=== PATIENT | female | born 1960 | race Caucasian/White ===

== ENCOUNTER → 2018-08-06 | Outpatient (REF) | payer MEDICARE ==
[~2018-08-06] MED LIST: AMLODIPINE BESYL5 MG PO; AMLODIPINE2.5 MG PO; AMLODIPINE5 MG PO; AMOX/K CLAV875 M1 PO; AMOXICILLIN500 MG PO; ANTIVERT PO; AUGMENTIN875TAB PO; BACTRIM DS1 TAB PO; BENZONATATE200 MG PO; FLONASE NASAL50 MCG; HYDROCHLORO25 MG/TAB PO; HYDROCHLOROT12.5 MG PO; LISINOPRIL10 MG PO; LISINOPRIL5 MG PO; LOPRESS HCT1 TAB PO; LOPRESSOR50 MG PO; METOPRL/HCTZ1 TA1 PO; METROGEL VAG0.75 % VA; MUCINEX600 MG PO; NAPROSYN500 MG PO; PAROXETINE OR; PAROXETINE25 MG PO; PAXIL CR25 MG OR; PAXIL30 MG PO; PRAVASTATIN SOD10 MG PO; ROBITUSSIN AC10 ML PO; ULTRAM50 MG OR; ZOFRAN ODT4 MG PO; ZPAK PO
== END | disposition home or self-care (01) ==
LOC: NUCMED 12:30 → STRESS 12:44
PROVIDERS: ATTEND Internal Medicine
DX: R07.89 Other chest pain (principal); I20.9 Angina pectoris, unspecified; I70.209 Unspecified atherosclerosis of native arteries of extremities, unspecified extremity
CPT/HCPCS: A9502

== ENCOUNTER 2021-01-22 19:04 | Emergency (ER) | payer MEDICARE ==
[~2021-01-22] VITALS: Ht 162.6 cm; Wt 77.0 kg
[2021-01-22] MEDS ORDERED: LEVOTHYROXIN25 MC1 PO (20:59)
[2021-01-22] MEDS ORDERED: COZAAR25 MG PO (21:00)
[2021-01-22] MEDS ORDERED: ESCITALOPRAM OX10 MG PO (21:00)
[2021-01-22] MEDS ORDERED: K-TABS10 MEQ PO (21:01)
[2021-01-22 21:04] LABS: IMMATURE GRANULOCYTES 0.3 % (0.0-5.0); MEAN CELL VOLUME 87.6 fL CALC (80.0-100.0); MEAN CORPUSCULAR HGB 29.2 pG CALC (26.0-32.0); MEAN CORPUSCULAR HGB CONC 33.3 g/dL CAL (32.0-36.0); NEUT# 1.61 thou/uL (2.00-7.15); RED BLOOD COUNT 4.11 mill/uL (4.20-5.60); RED CELL DISTRI WIDTH 13.8 % (11.5-15.5)
[2021-01-22] MEDS ORDERED: SLOW-MAG PO (21:04)
[2021-01-22] MEDS ORDERED: RESTASIS0.05 % OU (21:05)
[2021-01-22] MEDS ORDERED: ESTER-C500 M2 PO (21:09)
[2021-01-22] MEDS ORDERED: STOOL SOFTEN240 MG PO (21:10)
[2021-01-22] MEDS ORDERED: VITAMIN E400 UNIT PO (21:10)
[2021-01-22] MEDS ORDERED: MULTI VIT PO (21:11)
[2021-01-22] MEDS ORDERED: GLUCOSAMINE CHO1 CA3 PO (21:11)
[2021-01-22 21:27] LABS: ALBUMIN 3.6 g/dL (3.2-5.0); ALKALINE PHOSPHATASE 52 u/l (38-126); ANION GAP 12 (6-22 (CALC)); BILIRUBIN, TOTAL 0.3 mg/dL (0.0-1.4); BUN 13 mg/dL (7-17); BUN/CREATININE RATIO 18 (12-20 (CALC)); CARBON DIOXIDE 25 mmol/l (22-30); CHLORIDE 103 mmol/l (95-108); CREATININE 0.7 mg/dL (0.5-1.0); GFR > 60 ML/MIN (>=60 (CALC)); GFR FOR AFR.AMER. > 60 ML/MIN (>=60 (CALC)); POTASSIUM 3.3 mmol/l (3.5-5.1); SGOT/AST 57 u/l (14-36); SODIUM 137 mmol/l (137-146); TOTAL PROTEIN 6.3 g/dL (6.3-8.2)
[2021-01-23 01:52] LABS: URINE BILIRUBIN - DIPSTICK NEGATIVE (NEGATIVE); URINE BLOOD DIPSTICK TRACE-INTACT (NEGATIVE); URINE COLOR YELLOW; URINE GLUCOSE - DIPSTICK NEGATIVE (NEGATIVE); URINE KETONE NEGATIVE (NEGATIVE); URINE LEUK ESTERASE NEGATIVE (NEGATIVE); URINE PROTEIN - DIPSTICK NEGATIVE (NEG-TRACE); URINE UROBILINOGEN - DIPSTICK 0.2 E.U./dL (0.2)
[2021-01-23 02:05] LABS: URINE NITRITE - DIPSTICK NEGATIVE (Negative)
[2021-01-23 02:33] VITALS: BP 101/68
== END 2021-01-23 02:33 | disposition home or self-care (01) ==
LOC: ED 19:04
PROVIDERS: Family Medicine
DX: U07.1 COVID-19 (principal); F41.9 Anxiety disorder, unspecified

== ENCOUNTER 2022-05-19 18:44 | Emergency (ER) | payer MEDICARE ==
[~2022-05-19] VITALS: Ht 162.6 cm; Wt 83.6 kg
[~2022-05-19 18:44] MED LIST changes: +COZAAR25 MG PO; +ESCITALOPRAM OX10 MG PO; +ESTER-C500 M2 PO; +GLUCOSAMINE CHO1 CA3 PO; +K-TABS10 MEQ PO; +LEVOTHYROXIN25 MC1 PO; +MULTI VIT PO; +RESTASIS0.05 % OU; +SLOW-MAG PO; +STOOL SOFTEN240 MG PO; +VITAMIN E400 UNIT PO
[2022-05-19 19:45] VITALS: BP 122/80
[2022-05-19 20:03] VITALS: BP 118/71
[2022-05-19 20:18] LABS: HEMATOCRIT 39.6 % (37.0-47.0); HEMOGLOBIN 13.6 g/dl (12.0-16.0); IMMATURE GRANULOCYTES 0.9 % (0.0-5.0); MEAN CELL VOLUME 91.2 fL CALC (80.0-100.0); MEAN CORPUSCULAR HGB 31.3 pG CALC (26.0-32.0); MEAN CORPUSCULAR HGB CONC 34.3 g/dL CAL (32.0-36.0); NEUT# 2.81 thou/uL (2.00-7.15); RED BLOOD COUNT 4.34 mill/uL (4.20-5.60); RED CELL DISTRI WIDTH 13.1 % (11.5-15.5)
[2022-05-19 20:31] VITALS: BP 121/78
[2022-05-19 20:31] LABS: ALBUMIN 4.2 g/dL (3.2-5.0); ALKALINE PHOSPHATASE 77 u/l (38-126); ANION GAP 12 (6-22 (CALC)); BILIRUBIN, TOTAL 0.4 mg/dL (0.0-1.4); BUN 11 mg/dL (8-23); BUN/CREATININE RATIO 17 (12-20 (CALC)); CARBON DIOXIDE 24 mmol/l (22-30); CHLORIDE 110 mmol/l (95-108); CREATININE 0.6 mg/dL (0.5-1.0); GFR FOR AFR.AMER. > 60 ML/MIN (>=60 (CALC)); GFR OTHER RACES > 60 ML/MIN (>=60 (CALC)); LIPASE 98 u/l (23-300); SGOT/AST 38 u/l (9-36); SODIUM 142 mmol/l (137-146); TOTAL PROTEIN 6.9 g/dL (6.3-8.2)
[2022-05-19 20:35] LABS: D-DIMER 0.17 mg/L (0.19-0.60)
[2022-05-19 20:38] LABS: ACT PARTIAL THROMBO TIME 28.1 SECONDS (20.0-32.5); INTERNATIONAL NORMALIZED RATIO 1.1 RATIO (0.7-1.3); PROTHROMBIN TIME 10.7 SECONDS (9.0-12.5)
[2022-05-19 20:39] LABS: POTASSIUM 4.2 mmol/l (3.5-5.1)
[2022-05-19 22:06] LABS: URINE BILIRUBIN - DIPSTICK NEGATIVE (NEGATIVE); URINE BLOOD DIPSTICK SMALL (NEGATIVE); URINE COLOR YELLOW; URINE GLUCOSE - DIPSTICK NEGATIVE (NEGATIVE); URINE KETONE NEGATIVE (NEGATIVE); URINE LEUK ESTERASE NEGATIVE (NEGATIVE); URINE PROTEIN - DIPSTICK NEGATIVE (NEG-TRACE); URINE UROBILINOGEN - DIPSTICK 0.2 E.U./dL (0.2)
[2022-05-19 22:12] LABS: URINE NITRITE - DIPSTICK NEGATIVE (Negative)
[2022-05-19 22:25] LABS: URINE SQUAMOUS EPITHELIAL CELL FEW EPI/hpf (0-FEW); URINE WBC 0-2 WBC/hpf (0-5)
[2022-05-19] MEDS ORDERED: PROTONIX40 M2 PO (22:56)
[2022-05-19 23:10] VITALS: BP 134/78
== END 2022-05-19 23:16 | disposition home or self-care (01) ==
LOC: ED 18:44
PROVIDERS: Family Medicine
DX: K20.90 Esophagitis, unspecified without bleeding (principal); F41.9 Anxiety disorder, unspecified; R07.9 Chest pain, unspecified
CPT/HCPCS: Q9967